=== PATIENT | female | born 1965 | race Caucasian/White ===

== ENCOUNTER 2019-05-06 07:33 | Outpatient (CLI) | payer OTHER, SELFPAY ==
[2019-04-30 14:36] VITALS: BMI 25.7
[2019-05-06] VITALS (10 sets, daily range): BP systolic 103–136; BP diastolic 56–83; PULSE 72–95; RESP 14–24; O2SAT 95–96
--- NOTE | ~2019-05-06 | US_ITS ---
EXAMINATION: US biopsy liver DATE: 05/06/2019 10:01 INDICATION: Abnormal liver function tests. TECHNIQUE: The procedure including the risks, benefits, and alternatives was discussed with the patie nt. Risks discussed included bleeding and infection. The patient understood the risks and agreed to p roceed. The skin overlying the liver was prepped and draped in usual sterile fashion. Anesthetic was administered with 1% lidocaine subcutaneously. An 18 gauge core biopsy needle was then used to obta in 3 core biopsy specimens under continuous sonographic guidance. The entry site was cleaned and dres sed. There were no immediate complications. FINDINGS: Ultrasound images demonstrate the needle in the liver. IMPRESSION: 1. Ultrasound-guided random core needle liver biopsy. Reviewed, dictated and finalized at location A. NDER WORKER
[2019-05-06 08:23] LABS: INR 0.9; Prothrombin Time 12.1 Seconds (11.1-14.7)
[2019-05-06 08:40] LABS: Platelet Count Result 207 k/mm3 (150-375)
== END 2019-05-06 14:01 | disposition home or self-care (01) ==
LOC: SURGERY 07:37 → ANHSURGERY 07:38
PROVIDERS: Radiology Diagnostic Radiology; Visit Provider Internal Medicine Gastroenterology
DX: R94.5 Abnormal results of liver function studies (principal)
CPT/HCPCS: 36415; 47000; 76942; 85049; 85610; 88307; 88342

== ENCOUNTER 2019-05-17 10:15 | Emergency (ER) | payer OTHER, SELFPAY ==
--- NOTE | ~2019-05-17 | CT_ITS ---
EXAMINATION: CTA chest PE protocol DATE: 05/17/2019 12:50 INDICATION: Shortness of breath and chest pain. TECHNIQUE: Computed tomography angiography (CTA) of the chest was performed with 100 mL Omnipaque-350 intravenous contrast timed to evaluate the pulmonary arteries. Coronal maximum intensity projection 3D-reconstructions were created by the technologist. Automated exposure control and iterative reconst ruction technique were employed. The dose-length product was 325.54 mGy-cm. COMPARISON: Chest CT 03/10/2019 FINDINGS: The lungs demonstrate mild atelectasis. No pleural effusion. There are bilateral breast imp lants. The heart size is normal. No pericardial effusion. There is no pulmonary embolus. There are ch anges of cholecystectomy. There is thoracic levoscoliosis and mild spondylosis. IMPRESSION: 1. No pulmonary embolus. Reviewed, dictated and finalized at location A. LEAF ROLLER IMPRESSION: 1. No pulmonary embolus.
--- NOTE | ~2019-05-17 | XR_ITS ---
EXAMINATION: XR chest 2V DATE: 05/17/2019 10:50 INDICATION: Left lower rib pain. TECHNIQUE: Frontal and lateral views of the chest were obtained. COMPARISON: Chest 2 views 07/29/2018, chest CT 03/10/2019 FINDINGS: The chest demonstrates clear lungs without pneumonia, pleural effusion, or pneumothorax. Th e heart size is normal. Surgical clips in the right upper quadrant are likely from cholecystectomy. T here is a chronic compression fracture of T12. There are bilateral breast implants. There is no visib le rib fracture. IMPRESSION: 1. No acute cardiopulmonary disease. Reviewed, dictated and finalized at location A. ER OPERATOR
--- NOTE | 2019-05-17 10:24 | ED.BACK ---
HPI - Back Pain/Injury General Chief Complaint: Back Pain/Injury Stated Complaint: L back pain Time Seen by Provider: 05/17/19 10:19 Source: patient and RN notes reviewed Mode of arrival: ambulatory Limitations: no limitations History of Present Illness HPI Narrative: Pt is a 54 y/o female with a Hx of PE, who presents to the ED with c/o constant lt low back pain starting 3 days ago. She notes that she hasn't had any recent falls or injuries that could have caused her pain. Pt states that her pain is aggravated with deep breathing and twisting of her torso. She notes that her pain is located primarily in her posterior lt lower ribs. Pt denies any cough, rhinorrhea, fever, chills, nausea, or vomiting. She notes that she is concerned she may be having another PE. MD elicited complaint: back pain Pertinent past history: other (pulmonary embolism) Onset (ago): day(s) (3) Timing: constant Location: left lower back Exacerbating factors: movement (twisting of torso) and deep breaths Associated symptoms: denies other symptoms Related Data Home Medications Medication Instructions Recorded Confirmed gabapentin 600 mg tablet 600 mg PO DAILY 02/18/19 04/30/19 omeprazole 20 mg capsule,delayed 20 mg PO DAILY 02/18/19 04/30/19 release clobetasol 1 applic TOPICAL DAILY PRN 04/30/19 04/30/19 mupirocin 1 applic TOPICAL DIRECTED PRN 04/30/19 04/30/19 pimecrolimus 1 applic TOPICAL DIRECTED PRN 04/30/19 04/30/19 Allergies Allergy/AdvReac Type Severity Reaction Status Date / Time diclofenac Allergy Severe hives Verified 05/17/19 10:46 adhesive Allergy Unknown Itching/HIV Verified 05/17/19 10:34 ES Review of Systems Review of Systems: All systems reviewed & are unremarkable except as noted in HPI and below Constitutional: Constitutional: Denies chills and Denies fever(s) ENT: Denies nasal discharge Respiratory: Respiratory: Denies cough Gastrointestinal: Gastrointestinal: Denies nausea and Denies vomiting Musculoskeletal: Musculoskeletal: Reports back pain (lt low back pain) PMFSH Past Medical History Medical History Age-related osteoporosis without current pathological fracture Anemia Anxiety Bronchitis Chronic GERD Dermatitis Elbow fracture, right Foot fracture, right History of angina Irritable bowel syndrome with both constipation and diarrhea Left rib fracture x3 Major depression, chronic PE (pulmonary thromboembolism) Pneumonia Presence of neurostimulator Rheumatoid arthritis with positive rheumatoid factor Right wrist fracture UTI (urinary tract infection) Surgical History Surgical History H/O breast augmentation H/O laparoscopy History of appendectomy History of tonsillectomy Hx of cholecystectomy Hx of hysterectomy S/P ORIF (open reduction internal fixation) fracture lt ankle and rt wrist Social History Social History Smoking packs per day: 1.5 Smoking cigarettes per day: 30.0 Smoking status: Former smoker Tobacco type: cigarettes Second hand tobacco smoke exposure: No Smoking end date: 04/07/10 Alcohol intake: never Substance use: never Substance use type: does not use Gender identity (if verbalized by the patient): Female Comments PCP is Dr. Vanessa. Exam Narrative: Exam Narrative: General appearance: Well-developed, well-nourished Skin: Normal color Head: Normocephalic, nontraumatic Eyes: Clear conjunctiva ENT: Oropharynx normal, ears normal, nose normal Neck: Supple, nontender Chest and respiratory: Airway patent, no respiratory distress, no accessory muscle use Heart: Regular rate/rhythm Abdomen: Soft, nontender, no organomegaly, quiet bowel sounds Vascular: Normal peripheral pulses, normal capillary refill. Musculoskeletal: Normal range of motion, severe tenderness left lower ribs posteriorly, no bruises,
[2019-05-17 10:29] VITALS: BP 113/68; BP 142/70; PULSE 80; PULSE 88; RESP 16; RESP 17; TEMP 36.7; O2SAT 97; O2SAT 98
--- NOTE | 2019-05-17 10:39 | ECG_ITS ---
Measurements Intervals [place] Rate: 72 P: 49 WI: 152 QRS: 8 QRSD: 98 T: 20 QT: 371 QTc: 409 Interpretive Statements SINUS RHYTHM NORMAL ECG Electronically Signed On 05-17-2019 13:01:26 MEDICAL LIAISON by Liam Saldivar D.O.
[2019-05-17 11:29] LABS: Basophils Percent Auto 0.9 % (0.2-1.2); Eosinophils Absolute Auto 0.1 K/mm3 (0-0.3); Eosinophils Percent Auto 2.4 % (0-4.4); Hematocrit 40.6 % (37.0-47.0); Immature Granulocyte Absolute 0.01 K/mm3 (0.00-0.031); Immature Granulocyte Percent A 0.2 % (0-0.5); Lymphocytes Absolute Auto 1.52 K/mm3 (0.9-3.2); Mean Corpuscular Hemoglobin 35.1 pg (26-34); Mean Corpuscular Volume 109.7 fl (80-100); Mean Platelet Volume 10.7 fl (7.4-10.4); Monocytes Absolute Auto 0.5 K/mm3 (0.1-0.6); Neutrophils Absolute Auto 2.5 K/mm3 (1.3-6.7); Neutrophils Percent Auto 53.5 % (45.5-73.1); Platelet Count Result 178 k/mm3 (150-375); Red Cell Distribution Width 13.2 % (11.5-14.5); White Blood Count 4.6 K/mm3 (4.5-10.0)
[2019-05-17 11:41] LABS: INR 0.9; Prothrombin Time 12.2 Seconds (11.1-14.7)
[2019-05-17 11:42] LABS: Partial Thromboplastin Time 25.2 SECONDS (22.3-36.8)
[2019-05-17 11:45] LABS: D Dimer 2.05 ug/mL (<0.48)
[2019-05-17 11:47] LABS: Add Urine Microscopic? YES; Appearance Urine Clear (Clear); Bilirubin Urine Negative (Negative); Blood Urine Negative (Negative); Color Urine Straw (Yellow); Glucose Urine UA Negative (Negative); Ketones Urine Negative (Negative); Leukocyte Esterase Ur Trace LEU/UL (Negative); Mucus Urine Rare /lpf; Nitrate Urine Negative (Negative); Protein Urine Negative (Negative); RBC Urine 0-2 /hpf (0-2); Specific Grav Ur 1.006 (1.001-1.035); Squamous Epithelial Cell Urine Rare /hpf (Few); Urobilinogen Urine Negative mg/dL (<2.0); WBC Urine 0-3 /hpf
[2019-05-17 11:50] LABS: Troponin I < 0.012 ng/mL (0.000-0.034)
[2019-05-17 14:15] VITALS: BP 138/68; PULSE 80; RESP 14; O2SAT 98
== END 2019-05-17 14:15 | disposition home or self-care (01) ==
PROVIDERS: Emergency Provider Emergency Medicine
DX: M54.5 Low back pain (principal); M81.0 Age-related osteoporosis without current pathological fracture; K21.9 Gastro-esophageal reflux disease without esophagitis; K58.2 Mixed irritable bowel syndrome; Z86.711 Personal history of pulmonary embolism; M06.9 Rheumatoid arthritis, unspecified; Z87.440 Personal history of urinary (tract) infections; Z87.891 Personal history of nicotine dependence; Z86.2 Personal history of diseases of the blood and blood-forming organs and certain disorders involving the immune mechanism
CPT/HCPCS: 36415; 71046; 71275; 81001; 84484; 85025; 85380; 85610; 85730; 93005; 99284; A9270; J2270; J2405; Q9967

== ENCOUNTER 2019-10-04 10:15 | Emergency (ER) | payer OTHER, SELFPAY ==
[2019-10-04] VITALS (8 sets, daily range): BP systolic 115–133; BP diastolic 57–78; PULSE 56–78; RESP 12–19; TEMP 36.3–37.3; O2SAT 99–100
[2019-10-04 10:53] LABS: Basophils Percent Auto 0.2 % (0.2-1.2); Eosinophils Percent Auto 0.1 % (0-4.4); Hematocrit 45.3 % (37.0-47.0); Hemoglobin 15.2 g/dL (12.0-15.0); Immature Granulocyte Absolute 0.08 K/mm3 (0.00-0.031); Immature Granulocyte Percent A 0.4 % (0-0.5); Lymphocytes Absolute Auto 0.74 K/mm3 (0.9-3.2); Lymphocytes Percent Auto 3.8 % (18.3-44.2); Mean Corpuscular HGB Conc 33.6 g/dl (32-36); Mean Corpuscular Volume 86.3 fl (80-100); Monocytes Absolute Auto 1.3 K/mm3 (0.1-0.6); Monocytes Percent Auto 6.5 % (2.6-8.5); Neutrophils Absolute Auto 17.2 K/mm3 (1.3-6.7); Platelet Count Result 398 k/mm3 (150-375); Red Blood Count 5.25 M/mm3 (4.2-5.4); Red Cell Distribution Width 14.5 % (11.5-14.5); White Blood Count 19.3 K/mm3 (4.5-10.0)
[2019-10-04 11:08] LABS: Alanine Aminotransferase 27 U/L (4-35); Albumin Level 5.1 g/dL (3.5-5.1); Alkaline Phosphatase 158 U/L (38-126); Aspartate Amino Transferase 43 U/L (14-36); Bilirubin,Total 0.7 mg/dL (0.2-1.3); Blood Urea Nitrogen 4 mg/dL (7-17); Calcium 10.5 mg/dL (8.4-10.2); Carbon Dioxide 15 mmol/L (22-30); Chloride 107 mmol/L (98-107); Estimated CRCL calculation 77 ml/min; Estimated Glomerular Filt Rate > 60; Glucose 123 mg/dL (65-105); Lipase 182 U/L (23-300); Potassium 3.3 mmol/L (3.4-5.0); Sodium 137 mmol/L (137-145)
--- NOTE | 2019-10-04 11:27 | PC.NURSE ---
Pt refused to give urine sample, pt refused straight cath at this time. I'll try this later
[2019-10-04 12:06] LABS: Add Urine Microscopic? YES; Appearance Urine Clear (Clear); Bilirubin Urine Negative (Negative); Blood Urine 2+ (Negative); Color Urine Yellow (Yellow); Glucose Urine UA Negative (Negative); Hyaline Casts Urine 20-29 /lpf; Ketones Urine 2+ mg/dL (Negative); Leukocyte Esterase Ur Negative LEU/UL (Negative); Mucus Urine Rare /lpf; Nitrate Urine Negative (Negative); Protein Urine 2+ mg/dL (Negative); RBC Urine 0-2 /hpf (0-2); Specific Grav Ur 1.021 (1.001-1.035); Squamous Epithelial Cell Urine Occasional /hpf (Few); Urobilinogen Urine Negative mg/dL (<2.0)
[2019-10-04] MEDS: LACTATED RINGERS 1,000 ML 999 ML IV CONT ×2 (13:04→13:05)
[2019-10-04] MEDS: ONDANSETRON INJ 4 MG/2 ML VIAL IV PUSH ×2 (13:05→14:51)
[2019-10-04 13:12] LABS: Alveolar/Arterial O2 Gradient 29.8 mmHg; Carboxyhemoglobin 0.7 % THb (0-2.0); Fractional Inspired Oxygen 21 %; HCO3 ABG 11.4 mEq/l (22.0-26.0); Methemoglobin ABG 0.3 %THb (0-1.5); Oxygen Content ABG 20.9 %vol (16.0-22.0); Oxygen Saturation ABG 97.8 % (95.0-100.0); Oxyhemoglobin 96.8 % THb (90.0-100.0); PO2 ABG 98.5 mmHg (80.0-100.0); PO2 FiO2 Ratio Arterial Blood 4.69 %; Reduced Hemoglobin 2.2 %THb (0-5.0); Total Hemoglobin 15.3 g/dL (12.0-18.0); pH ABG 7.422 (7.350-7.450)
[2019-10-04 13:14] LABS: Modified Allen's Test Pass; PCO2 ABG 17.9 mmHg (35.0-45.0); Site Drawn LEFT RADIAL
[2019-10-04 13:15] LABS: Device ROOM AIR
--- NOTE | 2019-10-04 13:16 | ED.NAVMDI ---
HPI - Nausea/Vomiting/Diarrhea General Chief complaint: Nausea/Vomiting/Diarrhea Stated complaint: N/V Time Seen by Provider: 10/04/19 12:33 Source: patient Mode of arrival: ambulatory Limitations: no limitations History of Present Illness HPI Narrative: This patient is a 54 year old female who presents for evaluation of nausea and vomiting starting Friday. PAtient states that she had not had a bowel movment in 1 week due to constipation from Morphine so she took a laxative. AFter taking laxative she developed bilious vomiting and she is unable to keep any thing down. She also reports diarrhea, but her diarrhea stopped yesterday. She denies fever or chills. She normally takes morphine daily for chronic pain but she has not taken in 4 days. She denies urinary symptoms MD elicited complaint: nausea, vomiting and diarrhea Related Data Home Medications Medication Instructions Recorded Confirmed gabapentin 600 mg tablet 600 mg PO DAILY 02/18/19 04/30/19 omeprazole 20 mg capsule,delayed 20 mg PO DAILY 02/18/19 04/30/19 release clobetasol 1 applic TOPICAL DAILY PRN 04/30/19 04/30/19 mupirocin 1 applic TOPICAL DIRECTED PRN 04/30/19 04/30/19 pimecrolimus 1 applic TOPICAL DIRECTED PRN 04/30/19 04/30/19 morphine 15 mg immediate release 15 mg PO .Daily PRN tablet 08/31/19 tablet Allergies Allergy/AdvReac Type Severity Reaction Status Date / Time diclofenac Allergy Severe hives Verified 10/04/19 11:29 adhesive Allergy Unknown Itching/HIV Verified 10/04/19 11:29 ES Review of Systems Review of Systems: All systems reviewed & are unremarkable except as noted in HPI and below Constitutional: Constitutional: Denies chills and Denies fever(s) Respiratory: Respiratory: Denies cough and Denies dyspnea Gastrointestinal: Gastrointestinal: Reports constipation, Reports diarrhea, Reports nausea and Reports vomiting Genitourinary: Genitourinary: Reports no additional female genitourinary complaints Musculoskeletal: Musculoskeletal: Reports no additional musculoskeletal complaints PMFSH Past Medical History Medical History Age-related osteoporosis without current pathological fracture Anemia Anxiety Bronchitis Chronic GERD Dermatitis Elbow fracture, right Foot fracture, right History of angina Irritable bowel syndrome with both constipation and diarrhea Left rib fracture x3 Major depression, chronic PE (pulmonary thromboembolism) Pneumonia Presence of neurostimulator Rheumatoid arthritis with positive rheumatoid factor (2019) Right wrist fracture UTI (urinary tract infection) Social History Social History Smoking packs per day: 1.5 Smoking cigarettes per day: 30.0 Smoking status: Former smoker Tobacco type: cigarettes Second hand tobacco smoke exposure: No Smoking end date: 04/07/10 Alcohol intake: never Substance use: never Substance use type: does not use Gender identity (if verbalized by the patient): Female Exam Narrative: Exam Narrative: GENERAL: Well-appearing, well-nourished, and in no acute distress. HEAD: Normocephalic, atraumatic EYES: PERRLA and EOMI, conjunctiva clear without discharge EARS: TM's clear bilaterally without erythema or dullness NOSE: Nares clear, no rhinorrhea or epistaxis THROAT:Mucous membranes moist, Oropharynx normal without erythema, exudate, peritonsillar swelling or fluctuance NECK: Supple, without lymphadenopathy or mass RESPIRATORY: No respiratory distress, Airway patent, Respirations non-labored, Clear to auscultation without rales, rhonchi or wheeze HEART: Regular rate and rhythm. No murmur heard. Normal peripheral pulses. ABDOMEN: Soft, nontender, nondistended, normal active bowel sounds. No masses. No rebound or guarding, No organomegaly. EXTREMITIES: No edema, normal strength with full range of motion. SKIN: Warm,
[2019-10-04 13:51] LABS: Lactic Acid Reflex 1.1 mmol/L (0.7-2.1)
--- NOTE | 2019-10-04 15:09 | PC.NURSE ---
Patient reports continued nausea despite second dose of zofran being given. EDP aware
[2019-10-04] MEDS: PROMETHAZINE HCL 25 MG/ML AMPUL 12.5 MG IV PUSH (15:50)
== END 2019-10-04 17:19 | disposition home or self-care (01) ==
PROVIDERS: Emergency Provider General Practice; PCP Family Medicine
DX: R11.2 Nausea with vomiting, unspecified (principal); E86.0 Dehydration; Z87.891 Personal history of nicotine dependence; D64.9 Anemia, unspecified; F41.9 Anxiety disorder, unspecified; K21.9 Gastro-esophageal reflux disease without esophagitis; F32.9 Major depressive disorder, single episode, unspecified
CPT/HCPCS: 36415; 36600; 80053; 81001; 82375; 82805; 83050; 83605; 83690; 85025; 96361; 96374; 96375; 99284; J2405; J2550; J7120

== ENCOUNTER 2019-10-07 11:54 | Outpatient (CLI) | payer OTHER, SELFPAY ==
[2019-10-07 12:22] LABS: Basophils Percent Auto 0.4 % (0.2-1.2); Eosinophils Percent Auto 0.1 % (0-4.4); Hematocrit 44.3 % (37.0-47.0); Immature Granulocyte Absolute 0.05 K/mm3 (0.00-0.031); Immature Granulocyte Percent A 0.4 % (0-0.5); Lymphocytes Absolute Auto 3.47 K/mm3 (0.9-3.2); Mean Corpuscular HGB Conc 33.9 g/dl (32-36); Mean Corpuscular Volume 85.7 fl (80-100); Mean Platelet Volume 10.3 fl (7.4-10.4); Monocytes Absolute Auto 1.1 K/mm3 (0.1-0.6); Monocytes Percent Auto 9.7 % (2.6-8.5); Neutrophils Absolute Auto 6.5 K/mm3 (1.3-6.7); Neutrophils Percent Auto 58.4 % (45.5-73.1); Platelet Count Result 304 k/mm3 (150-375); Red Blood Count 5.17 M/mm3 (4.2-5.4); Red Cell Distribution Width 14.1 % (11.5-14.5); White Blood Count 11.2 K/mm3 (4.5-10.0)
[2019-10-07 13:14] LABS: Alanine Aminotransferase 25 U/L (4-35); Albumin Level 4.5 g/dL (3.5-5.1); Alkaline Phosphatase 125 U/L (38-126); Aspartate Amino Transferase 31 U/L (14-36); Blood Urea Nitrogen 6 mg/dL (7-17); Calcium 9.2 mg/dL (8.4-10.2); Carbon Dioxide 20 mmol/L (22-30); Chloride 102 mmol/L (98-107); Estimated Glomerular Filt Rate > 60; Glucose 79 mg/dL (65-105); Lipase 379 U/L (23-300); Sodium 137 mmol/L (137-145)
[2019-10-07 14:00] LABS: Potassium 2.8 mmol/L (3.4-5.0)
== END 2019-10-07 11:55 | disposition home or self-care (01) ==
PROVIDERS: PCP Family Medicine; Visit Provider Physician Assistant
DX: D72.829 Elevated white blood cell count, unspecified (principal); R10.9 Unspecified abdominal pain; R11.2 Nausea with vomiting, unspecified
CPT/HCPCS: 36415; 80053; 83690; 85025; 87086

== ENCOUNTER 2019-10-07 14:51 | Emergency (ER) | payer OTHER, SELFPAY ==
--- NOTE | ~2019-10-07 | CT_ITS ---
EXAMINATION: CT abdomen pelvis w con EXAM DATE: 10/07/2019 15:41 INDICATION: Low abdominal pain and vomiting. TECHNIQUE: Spiral CT of the abdomen and pelvis was performed following intravenous injection of 100 m L Omnipaque 350. Axial, coronal and sagittal images were reviewed. The dose-length product (DLP) fo r this examination was 346.44 mGy-cm. The exposure was tailored according to patient size (auto mA e xposure control), and iterative reconstruction (ASIR) was used as additional dose reduction technique . Comparison is made to prior examination from 08/20/2017. FINDINGS: The liver, spleen, adrenal glands and pancreas are unremarkable. There are cholecystectomy clips. Portal and splenic veins are patent. Kidneys enhance symmetrically. There is no hydronephr osis. Patulous right renal pelvis. No hydroureter. The uterus is not identified and has likely been surgically resected. The bladder is unremarkable. There is no retroperitoneal or pelvic lymphadenop athy. The appendix is not positively visualized. There is no pericecal inflammatory change to suggest appe ndicitis. The stomach and small bowel are unremarkable. There is expected amount of colonic stool. No free intraperitoneal gas. The heart is normal in size. There are no pericardial or pleural e ffusions. The lung bases are unremarkable. There are no osteoblastic or osteolytic lesions identifi ed. breast implants. IMPRESSION: 1. No acute intra-abdominal findings. Reviewed, dictated and finalized at location B.
[2019-10-07 14:59] VITALS: BP 129/98; PULSE 96; RESP 17; TEMP 36.9; O2SAT 100
--- NOTE | 2019-10-07 15:08 | PC.NURSE ---
Patient had lab work done here about 3 hours ago. Discussed patient with charge nurse. Labs from noon printed on placed on chart. UA ordered. Patient reports that she is her for a CT scan.
[2019-10-07] MEDS: LACTATED RINGERS 1,000 ML 999 ML IV CONT (15:24)
[2019-10-07] MEDS: ONDANSETRON INJ 4 MG/2 ML VIAL IV PUSH (15:24)
[2019-10-07 16:22] LABS: Add Urine Microscopic? YES; Appearance Urine Clear (Clear); Bilirubin Urine Negative (Negative); Blood Urine 1+ (Negative); Color Urine Colorless (Yellow); Glucose Urine UA Negative (Negative); Ketones Urine 2+ mg/dL (Negative); Leukocyte Esterase Ur Negative LEU/UL (Negative); Nitrate Urine Negative (Negative); Protein Urine Negative (Negative); RBC Urine 0-2 /hpf (0-2); Urobilinogen Urine Negative mg/dL (<2.0); WBC Urine 0-3 /hpf
[2019-10-07] MEDS: POTASSIUM CHLORIDE 20 MEQ PACKET (FOR LIQUID) 40 MEQ PO (16:24)
[2019-10-07 16:25] LABS: Specific Grav Ur 1.039 (1.001-1.035)
[2019-10-07] MEDS: FAMOTIDINE 20 MG/2 ML VIAL IV PUSH (16:41)
[2019-10-07] MEDS: PROCHLORPERAZINE EDISYLATE 10 MG/2 ML VIAL IV PUSH (16:41)
--- NOTE | 2019-10-07 17:04 | ED.ABDPAIN ---
HPI - Abdominal Pain General Chief Complaint: Abdominal Pain <MAE Oglesby Last Filed: 10/07/19 17:10> Stated Complaint: weak, abnormal labs <MAE Oglesby Last Filed: 10/07/19 17:10> Time Seen by Provider: 10/07/19 15:56 <MAE Oglesby Last Filed: 10/07/19 17:10> Source: patient <MAE Oglesby Last Filed: 10/07/19 17:10> Mode of arrival: ambulatory <MAE Oglesby Last Filed: 10/07/19 17:10> Limitations: no limitations <MAE Oglesby Last Filed: 10/07/19 17:10> History of Present Illness HPI narrative: Patient is a 54-year-old female who presents with a week duration of intermittent nausea and vomiting described as bilious was seen in the emergency department a day ago had blood work performed and was sent home but has continued to nausea and vomiting since leaving yesterday seen by primary care today had repeat blood work and was referred back to emergency department patient notes mild cramping of the abdomen patient has not taken anything for her symptoms patient denies rectal bleeding melena or diarrhea <MAE Oglesby Last Filed: 10/07/19 17:10> Related Data Home Medications: Home Medications Medication Instructions Recorded Confirmed gabapentin 600 mg tablet 600 mg PO DAILY 02/18/19 04/30/19 omeprazole 20 mg capsule,delayed 20 mg PO DAILY 02/18/19 04/30/19 release clobetasol 1 applic TOPICAL DAILY PRN 04/30/19 04/30/19 mupirocin 1 applic TOPICAL DIRECTED PRN 04/30/19 04/30/19 pimecrolimus 1 applic TOPICAL DIRECTED PRN 04/30/19 04/30/19 morphine 15 mg immediate release 15 mg PO .Daily PRN tablet 08/31/19 tablet morphine 30 mg immediate release 30 mg PO Q8H PRN 10/07/19 10/07/19 tablet <MAE Oglesby Last Filed: 10/07/19 17:10> Allergies/Adverse Reactions: Allergies Allergy/AdvReac Type Severity Reaction Status Date / Time diclofenac Allergy Severe hives Verified 10/07/19 15:01 adhesive Allergy Unknown Itching/HIV Verified 10/07/19 15:01 ES <Michael Jaramillo PA-C - Last Filed: 10/07/19 17:10> Review of Systems Review of Systems: All systems reviewed & are unremarkable except as noted in HPI and below <Michael Jaramillo PA-C - Last Filed: 10/07/19 17:10> PMFSH Past Medical History Medical History: Medical History Age-related osteoporosis without current pathological fracture Anemia Anxiety Bronchitis Chronic GERD Dermatitis Elbow fracture, right Foot fracture, right History of angina Irritable bowel syndrome with both constipation and diarrhea Left rib fracture x3 Major depression, chronic PE (pulmonary thromboembolism) Pneumonia Presence of neurostimulator Rheumatoid arthritis with positive rheumatoid factor (2019) Right wrist fracture UTI (urinary tract infection) <Michael Jaramillo PA-C - Last Filed: 10/07/19 17:10> Surgical History Surgical History: Surgical History H/O breast augmentation H/O laparoscopy History of appendectomy History of tonsillectomy Hx of cholecystectomy Hx of hysterectomy S/P ORIF (open reduction internal fixation) fracture lt ankle and rt wrist <Michael Jaramillo PA-C - Last Filed: 10/07/19 17:10> Social History Social History: Social History Smoking packs per day: 1.5 Smoking cigarettes per day: 30.0 Smoking status: Former smoker Tobacco type: cigarettes Second hand tobacco smoke exposure: No Smoking end date: 04/07/10 Alcohol intake: never Substance use: never Substance use type: does not use Gender identity (if verbalized by the patient): Female <Michael Jaramillo PA-C - Last Filed: 10/07/19 17:10> Exam Narrative: Exam Narrative: GENERAL: Well-appearing, well-nourished, and in no acute di
[2019-10-07 17:18] VITALS: BP 135/79; PULSE 89; RESP 17; O2SAT 98
== END 2019-10-07 17:18 | disposition home or self-care (01) ==
PROVIDERS: Emergency Provider General Practice; PCP Family Medicine
DX: R10.9 Unspecified abdominal pain (principal); M81.0 Age-related osteoporosis without current pathological fracture; Z86.2 Personal history of diseases of the blood and blood-forming organs and certain disorders involving the immune mechanism; K21.9 Gastro-esophageal reflux disease without esophagitis; K58.2 Mixed irritable bowel syndrome; M05.9 Rheumatoid arthritis with rheumatoid factor, unspecified; Z86.711 Personal history of pulmonary embolism; Z87.440 Personal history of urinary (tract) infections; Z87.891 Personal history of nicotine dependence
CPT/HCPCS: 74177; 81001; 96361; 96374; 96375; 99284; A9270; J0780; J2405; J7120; Q9967

== ENCOUNTER 2019-10-22 00:45 | Outpatient (CLI) | payer OTHER, SELFPAY ==
[2019-10-22 19:22] LABS: SARS-CoV-2 RNA PCR Negative
== END 2019-10-22 00:46 | disposition home or self-care (01) ==
LOC: ANHCOVIDDT 00:45
PROVIDERS: PCP Family Medicine; Visit Provider Internal Medicine Gastroenterology
DX: Z01.818 Encounter for other preprocedural examination (principal); Z11.59 Encounter for screening for other viral diseases
CPT/HCPCS: 87635; C9803; U0003

== ENCOUNTER 2019-10-25 01:59 | Day surgery (SDC) | payer OTHER, SELFPAY ==
[2019-10-19 13:42] VITALS: BMI 24.2
[2019-10-25 08:00] VITALS: BP 125/68; PULSE 97; RESP 18; TEMP 37.2; O2SAT 98
--- NOTE | 2019-10-25 08:12 | WPDGICN ---
Assessment and Plan Assessment and plan (1) Chronic GERD: Code(s): K21.9 - Gastro-esophageal reflux disease without esophagitis Status: Acute Assessment and Plan: Patient has a history of GE reflux disease. Currently not responding well to Prilosec therapy. Plan is for EGD to assess more thoroughly. (2) Nausea & vomiting: Code(s): R11.2 - Nausea with vomiting, unspecified Status: Acute Assessment and Plan: Protracted nausea vomiting. Likely related to GERD. Cannot exclude marijuana use contributing some component of cyclical vomiting. She has been advised to minimize marijuana use. Prilosec 20 mg p.o. daily is given. Further recommendations will be given after endoscopy. GI Consult Note Consult date/time: 10/25/19 08:12 HPI: Angelica Armando is a 54 year old female seen in evaluation at the request of Dr Gregorio Vanessa. Patient has a long history of GE reflux disease. Previously controlled on ranitidine. Symptoms seem to worsen when she was changed to Prilosec recently. She now complains protracted episodes of vomiting. She had a 1 week episode of ongoing nausea vomiting. More recently has had intermittent nausea and vomiting. Sometimes this woke her in the middle of the night. She has continued Prilosec 20 mg p.o. daily. Intermittently will supplement this with Pepto-Bismol. She admits to social E using marijuana. She denies any recent change in medications otherwise. Some of her vomiting emesis is having had coffee-ground texture. Family history is noncontributory. Review of Systems Review of Systems: All systems reviewed & are unremarkable except as noted in HPI and below PMFSH Past Medical History Medical History Age-related osteoporosis without current pathological fracture Anemia Anxiety Bronchitis Chronic GERD Dermatitis Elbow fracture, right Foot fracture, right History of angina Irritable bowel syndrome with both constipation and diarrhea Left rib fracture x3 Major depression, chronic PE (pulmonary thromboembolism) Pneumonia Presence of neurostimulator Rheumatoid arthritis with positive rheumatoid factor (2019) Right wrist fracture UTI (urinary tract infection) Surgical History Surgical History H/O breast augmentation H/O laparoscopy History of appendectomy History of tonsillectomy Hx of cholecystectomy Hx of hysterectomy S/P ORIF (open reduction internal fixation) fracture lt ankle and rt wrist Family History Family History Mother Hypertension Cerebrovascular accident Family history of lymphoma Father Family history of Alzheimer's disease Other Carcinoma of colon Depression Diabetes mellitus Family history of arthritis Family history of cardiovascular disease Family history of emphysema Family history of glaucoma Family history of gout Family history of hepatitis Family history of thyroid disease Social History Social History Smoking packs per day: 1.5 Smoking cigarettes per day: 30.0 Smoking status: Former smoker Tobacco type: cigarettes Second hand tobacco smoke exposure: No Smoking end date: 04/07/10 Alcohol intake: never Substance use: never Substance use type: does not use Gender identity (if verbalized by the patient): Female Meds Home Medications and Allergies Home Medications Medication Instructions Recorded Confirmed Type gabapentin 600 mg tablet 600 mg PO DAILY 02/18/19 10/19/19 History omeprazole 20 mg capsule,delayed 20 mg PO DAILY 02/18/19 10/19/19 History release trazodone 50 mg tablet 50 mg PO .qhs #90 tablet 05/10/19 10/19/19 Rx etanercept 50 mg/mL (1 mL) 50 mg SUB-Q WEEKLY #4 ml 08/31/19 10/19/19 Rx subcutaneous cartridge morphine 30 mg immediate rel
--- NOTE | 2019-10-25 08:19 | WPDANESEPPF ---
Anes - Initial Pre Proc Eval Procedure: Operation Date: 10/25/19 09:00 Proposed Procedures p Esophagogastroduodenoscopy - Brown Lewis MD Date/Time: 10/25/19 08:19 Surgeon: Brown Lewis MD Pre Op Diagnosis: vomiting Patient Data Age: 54 Gender: F Height: 5 ft 4 in Weight: 69.2 kg Last Vital Signs Temp 37.2 C 10/25/19 08:00 Pulse 97 10/25/19 08:00 Resp 18 10/25/19 08:00 BP 125/68 10/25/19 08:00 Pulse Ox 98 10/25/19 08:00 Allergies Allergy/AdvReac Type Severity Reaction Status Date / Time diclofenac Allergy Severe hives Verified 10/25/19 07:59 adhesive Allergy Unknown Itching/HIV Verified 10/25/19 07:59 ES Home Medications Medication Instructions Recorded Confirmed Type gabapentin 600 mg tablet 600 mg PO DAILY 02/18/19 10/19/19 History omeprazole 20 mg capsule,delayed 20 mg PO DAILY 02/18/19 10/19/19 History release trazodone 50 mg tablet 50 mg PO .qhs #90 tablet 05/10/19 10/19/19 Rx etanercept 50 mg/mL (1 mL) 50 mg SUB-Q WEEKLY #4 ml 08/31/19 10/19/19 Rx subcutaneous cartridge morphine 30 mg immediate release 30 mg PO Q8H PRN 10/07/19 10/19/19 History tablet promethazine 25 mg PO Q4H PRN #10 tablet 10/07/19 10/19/19 Rx diphenhydramine HCl [Benadryl] 25 mg PO HS 10/19/19 10/19/19 History Patient hx anesthesia problems: none Family hx anesthesia problems: none PMFSH Past Medical History Medical History Age-related osteoporosis without current pathological fracture Anemia Anxiety Bronchitis Chronic GERD Dermatitis Elbow fracture, right Foot fracture, right History of angina Irritable bowel syndrome with both constipation and diarrhea Left rib fracture x3 Major depression, chronic PE (pulmonary thromboembolism) Pneumonia Presence of neurostimulator Rheumatoid arthritis with positive rheumatoid factor (2019) Right wrist fracture UTI (urinary tract infection) Surgical History Surgical History H/O breast augmentation H/O laparoscopy History of appendectomy History of tonsillectomy Hx of cholecystectomy Hx of hysterectomy S/P ORIF (open reduction internal fixation) fracture lt ankle and rt wrist Family History Family History Mother Hypertension Cerebrovascular accident Family history of lymphoma Father Family history of Alzheimer's disease Other Carcinoma of colon Depression Diabetes mellitus Family history of arthritis Family history of cardiovascular disease Family history of emphysema Family history of glaucoma Family history of gout Family history of hepatitis Family history of thyroid disease Social History Social History Smoking packs per day: 1.5 Smoking cigarettes per day: 30.0 Smoking status: Former smoker Tobacco type: cigarettes Second hand tobacco smoke exposure: No Smoking end date: 04/07/10 Alcohol intake: never Substance use: never Substance use type: does not use Gender identity (if verbalized by the patient): Female Anes - Eval Final PreProcedure Day of Procedure 10/25/19 08:19 Patient weight: overweight Heart: regular rate and rhythm Lungs: decreased breath sounds Airway: Mallampati scale class II Neurological: alert and oriented Last oral intake: >/= 8 hours ASA classification: III Emergent: no Anesthetic plan: proceed Anesthesia type and monitoring: general GIVS and standard monitoring Informed Consent: The patient's anesthetic plan and its attendant risks and benefits were discussed with the patient/family/POA. Questions were solicited and answers provided to the satisfaction of the patient/family/POA.
[2019-10-25] MEDS: LACTATED RINGERS 1,000 ML 150 ML IV CONT (09:09)
[2019-10-25] MEDS: BENZOCAINE (*SP) 60 ML SPRAY CAN (HURRICAINE) 1 SPRAY MUCOUS MEM (09:35)
[2019-10-25 09:48] VITALS: BP 97/62; PULSE 84; RESP 17; O2SAT 99
[2019-10-25 09:58] VITALS: BP 103/62; PULSE 74; RESP 14; O2SAT 96
[2019-10-25 10:08] VITALS: BP 108/74; PULSE 73; RESP 19; O2SAT 98
== END 2019-10-25 10:14 | disposition home or self-care (01) ==
PROVIDERS: PCP Family Medicine; Visit Provider Internal Medicine Gastroenterology
PROC: 0DJ08ZZ Inspection of Upper Intestinal Tract, Via Natural or Artificial Opening Endoscopic (ICD-10-PCS; CPT 43235; principal; 2019-10-25 09:00)
DX: K31.89 Other diseases of stomach and duodenum (principal); K21.9 Gastro-esophageal reflux disease without esophagitis; M05.9 Rheumatoid arthritis with rheumatoid factor, unspecified; F41.9 Anxiety disorder, unspecified; F33.9 Major depressive disorder, recurrent, unspecified; Z86.711 Personal history of pulmonary embolism; Z87.891 Personal history of nicotine dependence; Z79.891 Long term (current) use of opiate analgesic; Z79.899 Other long term (current) drug therapy
CPT/HCPCS: 43235; J2704; J7120

== ENCOUNTER 2019-11-05 07:27 | Outpatient (CLI) | payer OTHER, SELFPAY ==
--- NOTE | ~2019-11-05 | NM_ITS ---
EXAM: NM gastric emptying study DATE: 11/05/2019 12:42 INDICATION: Nausea. TECHNIQUE: A gastric emptying study was performed using the methodology of Som MORALES, et al. J Nucl Med 2007; 48:568-572. The patient was given a meal consisting of 2 scrambled eggs labeled with 1 mCi Tc-99m sulfur colloid, 2 slices of toast, two packages of jam, and approximately 120 mL of water. Si multaneous anterior and posterior 1-min images of the abdomen were obtained with the patient supine a t multiple time points over a total period of 4 hours. The geometric mean of anterior and posterior v iews was determined, and the percentage retention was calculated for each time point. COMPARISON: CT abdomen and pelvis 10/07/2019 FINDINGS: Gastric retention of the radiotracer-labeled meal was 60%, 40%, and 5% at the 1-hour, 2-ho ur, and 4-hour time points, respectively. With this technique, apparent rapid gastric emptying is sug gested by <30% gastric retention at 1 hour. Delayed gastric emptying is defined by gastric retention of >90% at 1 hour, >60% retention at 2 hours, or >10% retention at 4 hours. IMPRESSION: 1. Normal gastric emptying. Reviewed, dictated and finalized at location A. IMPRESSION: 1. Normal gastric emptying.
== END 2019-11-05 07:28 | disposition home or self-care (01) ==
PROVIDERS: PCP Family Medicine; Visit Provider Internal Medicine Gastroenterology
DX: R11.0 Nausea (principal)
CPT/HCPCS: 78264; A9541

== ENCOUNTER 2019-12-29 03:06 | Outpatient (CLI) | payer OTHER, SELFPAY ==
[2019-12-29 18:39] LABS: SARS-CoV-2 RNA PCR Negative
== END 2019-12-29 03:07 | disposition home or self-care (01) ==
LOC: ANHCOVIDDT 03:06
PROVIDERS: PCP Family Medicine; Visit Provider Podiatrist Foot & Ankle Surgery
DX: Z01.812 Encounter for preprocedural laboratory examination (principal); Z20.828 Contact with and (suspected) exposure to other viral communicable diseases
CPT/HCPCS: 87635; C9803; U0003

== ENCOUNTER 2019-12-31 01:37 | Day surgery (SDC) | payer OTHER, SELFPAY ==
[2019-12-20 12:12] VITALS: BMI 24.0
[2019-12-31 10:10] VITALS: BP 118/57; PULSE 73; RESP 16; TEMP 36; O2SAT 100; BMI 24.0
[2019-12-31] MEDS: LACTATED RINGERS 1,000 ML 30 ML IV CONT (10:45)
--- NOTE | 2019-12-31 10:56 | SUR.PREOP ---
1045; PT HAS DARK TOENAIL GREENLANDIC ON LT FOOT. REMOVED WITH GREENLANDIC REMOVER.
--- NOTE | 2019-12-31 11:25 | WPDANESEPPF ---
Anes - Initial Pre Proc Eval Procedure: Operation Date: 12/31/19 12:00 Proposed Procedures p Removal Screw Left Ankle - Lazaro Gamboa DPM Date/Time: 12/31/19 11:25 Surgeon: Lazaro Gamboa DPM Pre Op Diagnosis: Painful Hardware Left Ankle Patient Data Age: 54 Gender: F Height: 5 ft 4 in Weight: 63.5 kg Last Vital Signs Temp 36.0 C L 12/31/19 10:10 Pulse 73 12/31/19 10:10 Resp 16 12/31/19 10:10 BP 118/57 L 12/31/19 10:10 Pulse Ox 100 12/31/19 10:10 Allergies Allergy/AdvReac Type Severity Reaction Status Date / Time diclofenac Allergy Severe hives Verified 12/31/19 10:24 adhesive Allergy Unknown Itching/HIV Verified 12/31/19 10:24 ES Home Medications Medication Instructions Recorded Confirmed Type gabapentin 600 mg tablet 600 mg PO DAILY 02/18/19 12/31/19 History omeprazole 20 mg capsule,delayed 20 mg PO DAILY 02/18/19 12/31/19 History release etanercept 50 mg/mL (1 mL) 50 mg SUB-Q WEEKLY #4 ml 08/31/19 12/31/19 Rx subcutaneous cartridge morphine 30 mg immediate release 30 mg PO Q8H PRN 10/07/19 12/31/19 History tablet promethazine 25 mg PO Q4H PRN #10 tablet 10/07/19 12/31/19 Rx diphenhydramine HCl [Benadryl] 25 mg PO HS 10/19/19 12/31/19 History hydroxychloroquine 200 mg tablet 400 mg PO DAILY #60 tablet 11/17/19 12/31/19 Rx trazodone 50 mg PO HS 12/20/19 12/31/19 History Patient hx anesthesia problems: none Family hx anesthesia problems: none PMFSH Past Medical History Medical History Age-related osteoporosis without current pathological fracture Anemia Anxiety Bronchitis Chronic GERD Dermatitis Elbow fracture, right Foot fracture, right History of angina Irritable bowel syndrome with both constipation and diarrhea Left rib fracture x3 Major depression, chronic PE (pulmonary thromboembolism) Pneumonia Presence of neurostimulator Rheumatoid arthritis with positive rheumatoid factor (2019) Right wrist fracture UTI (urinary tract infection) Surgical History Surgical History H/O breast augmentation H/O laparoscopy History of appendectomy History of tonsillectomy Hx of cholecystectomy Hx of hysterectomy S/P ORIF (open reduction internal fixation) fracture lt ankle and rt wrist Family History Family History Mother Hypertension Cerebrovascular accident Family history of lymphoma Father Family history of Alzheimer's disease Other Carcinoma of colon Depression Diabetes mellitus Family history of arthritis Family history of cardiovascular disease Family history of emphysema Family history of glaucoma Family history of gout Family history of hepatitis Family history of thyroid disease Social History Social History Smoking packs per day: 1 Smoking cigarettes per day: 20.0 Years smoked: 30 Smoking pack-years: 30.00 Smoking status: Former smoker Tobacco type: cigarettes Second hand tobacco smoke exposure: No Smoking end date: 04/07/10 Additional smoking assessment comments: QUIT 7 YEARS AGO Alcohol intake: never Substance use: current Substance use type: marijuana Gender identity (if verbalized by the patient): Female Spiritual care concerns: No Anes - Eval Final PreProcedure Day of Procedure 12/31/19 11:25 Patient weight: normal Heart: regular rate and rhythm Lungs: clear to auscultation Airway: Mallampati scale class II Neurological: alert and oriented Last oral intake: >/= 8 hours ASA classification: III Emergent: no Anesthetic plan: proceed Anesthesia type and monitoring: general GIVS and standard monitoring Informed Consent: The patient's anesthetic plan and its attendant risks and benefits were discussed with the patient/family/POA. Questions were solicited and answe
--- NOTE | 2019-12-31 11:37 | WPDHPUPDATE1 ---
History and Physical Update Update Date/Time: 12/31/19 11:37 History and Physical has been reviewed, including an updated exam of the patient. There are NO changes in the patient's condition. Risks, benefits, and alternatives have been discussed and questions answered. Patient agrees to proceed with procedure.
--- NOTE | 2019-12-31 11:51 | PM.IMHP ---
H&P: HPI History of Present Illness Date/Time: 12/31/19 11:51 Chief complaint: Painful Hardware Left Ankle Narrative: Angelica Armando is a 54 year old female [facility] Past Medical History Medical History Age-related osteoporosis without current pathological fracture Anemia Anxiety Bronchitis Chronic GERD Dermatitis Elbow fracture, right Foot fracture, right History of angina Irritable bowel syndrome with both constipation and diarrhea Left rib fracture x3 Major depression, chronic PE (pulmonary thromboembolism) Pneumonia Presence of neurostimulator Rheumatoid arthritis with positive rheumatoid factor (2019) Right wrist fracture UTI (urinary tract infection) Surgical History Surgical History H/O breast augmentation H/O laparoscopy History of appendectomy History of tonsillectomy Hx of cholecystectomy Hx of hysterectomy S/P ORIF (open reduction internal fixation) fracture lt ankle and rt wrist Family History Family History Mother Hypertension Cerebrovascular accident Family history of lymphoma Father Family history of Alzheimer's disease Other Carcinoma of colon Depression Diabetes mellitus Family history of arthritis Family history of cardiovascular disease Family history of emphysema Family history of glaucoma Family history of gout Family history of hepatitis Family history of thyroid disease Social History Social History Smoking packs per day: 1 Smoking cigarettes per day: 20.0 Years smoked: 30 Smoking pack-years: 30.00 Smoking status: Former smoker Tobacco type: cigarettes Second hand tobacco smoke exposure: No Smoking end date: 04/07/10 Additional smoking assessment comments: QUIT 7 YEARS AGO Alcohol intake: never Substance use: current Substance use type: marijuana Gender identity (if verbalized by the patient): Female Spiritual care concerns: No Meds Home Medications and Allergies Home Medications Medication Instructions Recorded Confirmed Type gabapentin 600 mg tablet 600 mg PO DAILY 02/18/19 12/31/19 History omeprazole 20 mg capsule,delayed 20 mg PO DAILY 02/18/19 12/31/19 History release etanercept 50 mg/mL (1 mL) 50 mg SUB-Q WEEKLY #4 ml 08/31/19 12/31/19 Rx subcutaneous cartridge morphine 30 mg immediate release 30 mg PO Q8H PRN 10/07/19 12/31/19 History tablet promethazine 25 mg PO Q4H PRN #10 tablet 10/07/19 12/31/19 Rx diphenhydramine HCl [Benadryl] 25 mg PO HS 10/19/19 12/31/19 History hydroxychloroquine 200 mg tablet 400 mg PO DAILY #60 tablet 11/17/19 12/31/19 Rx trazodone 50 mg PO HS 12/20/19 12/31/19 History Allergies Allergy/AdvReac Type Severity Reaction Status Date / Time diclofenac Allergy Severe hives Verified 12/31/19 10:24 adhesive Allergy Unknown Itching/HIV Verified 12/31/19 10:24 ES Vital Signs Vital Signs - 24 hr 12/31/19 10:10 Temperature 36.0 C L Pulse Rate 73 Respiratory Rate 16 Blood Pressure 118/57 L Pulse Oximetry 100 Exam Const: General: no acute distress Skin: General skin exam: normal color Neuro: Cognition (Neuro): normal cognition Speech: normal speech Motor exam (neuro): 5/5 motor strength present throughout Sensory Exam: normal sensation Extrem: Left lower extremity: ankle Details: tenderness Location: of the lateral malleolus Assessment and Plan Additional Plan Excision of painful hardware left ankle
--- NOTE | 2019-12-31 11:54 | P.HP_ITS ---
H&P: HPI History of Present Illness Date/Time: 12/31/19 11:54 Chief complaint: Painful Hardware Left Ankle Narrative: Angelica Armando is a 54 year old female REPLACED BY [facility] Past Medical History Medical History Age-related osteoporosis without current pathological fracture Anemia Anxiety Bronchitis Chronic GERD Dermatitis Elbow fracture, right Foot fracture, right History of angina Irritable bowel syndrome with both constipation and diarrhea Left rib fracture x3 Major depression, chronic PE (pulmonary thromboembolism) Pneumonia Presence of neurostimulator Rheumatoid arthritis with positive rheumatoid factor (2019) Right wrist fracture UTI (urinary tract infection) Surgical History Surgical History H/O breast augmentation H/O laparoscopy History of appendectomy History of tonsillectomy Hx of cholecystectomy Hx of hysterectomy S/P ORIF (open reduction internal fixation) fracture lt ankle and rt wrist Family History Family History Mother Hypertension Cerebrovascular accident Family history of lymphoma Father Family history of Alzheimer's disease Other Carcinoma of colon Depression Diabetes mellitus Family history of arthritis Family history of cardiovascular disease Family history of emphysema Family history of glaucoma Family history of gout Family history of hepatitis Family history of thyroid disease Social History Social History Smoking packs per day: 1 Smoking cigarettes per day: 20.0 Years smoked: 30 Smoking pack-years: 30.00 Smoking status: Former smoker Tobacco type: cigarettes Second hand tobacco smoke exposure: No Smoking end date: 04/07/10 Additional smoking assessment comments: QUIT 7 YEARS AGO Alcohol intake: never Substance use: current Substance use type: marijuana Gender identity (if verbalized by the patient): Female Spiritual care concerns: No Meds Home Medications and Allergies Home Medications Medication Instructions Recorded Confirmed Type gabapentin 600 mg tablet 600 mg PO DAILY 02/18/19 12/31/19 History omeprazole 20 mg capsule,delayed 20 mg PO DAILY 02/18/19 12/31/19 History release etanercept 50 mg/mL (1 mL) 50 mg SUB-Q WEEKLY #4 ml 08/31/19 12/31/19 Rx subcutaneous cartridge morphine 30 mg immediate release 30 mg PO Q8H PRN 10/07/19 12/31/19 History tablet promethazine 25 mg PO Q4H PRN #10 tablet 10/07/19 12/31/19 Rx diphenhydramine HCl [Benadryl] 25 mg PO HS 10/19/19 12/31/19 History hydroxychloroquine 200 mg tablet 400 mg PO DAILY #60 tablet 11/17/19 12/31/19 Rx trazodone 50 mg PO HS 12/20/19 12/31/19 History Allergies Allergy/AdvReac Type Severity Reaction Status Date / Time diclofenac Allergy Severe hives Verified 12/31/19 10:24 adhesive Allergy Unknown Itching/HIV Verified 12/31/19 10:24 ES Vital Signs Vital Signs - 24 hr 12/31/19 10:10 Temperature 36.0 C L Pulse Rate 73 Respiratory Rate 16 Blood Pressure 118/57 L Pulse Oximetry 100
[2019-12-31] MEDS: ceFAZolin 2 GM/D5W 50 ML 2 GM/50 ML BAG IVPB (11:59)
[2019-12-31] MEDS: LIDOCAINE HCL 2% LOCAL INJ 20 ML VIAL 10 ML INFILTRATE (12:18)
[2019-12-31] MEDS: BACITRACIN OINTMENT 15 GM TUBE 1 APPLIC TOPICAL (12:24)
--- NOTE | 2019-12-31 12:27 | P.OP_ITS ---
Procedure Note - Detailed Date of procedure: 12/31/19 Pre-op diagnosis: Painful Hardware Left Ankle Post-op diagnosis: same Procedure performed: Removal of painful hardware left ankle Description of procedure: Under monitored sedation patient was brought into the operating room, placed on the operating table. Following MAC anesthesia local anesthesia was obtained using 2% Lidocaine plain and 0.5% Marcaine plain. The foot was then scrubbed, prepped, and draped in the usual aseptic manner. Attention was then directed to the lateral fibula left ankle where an incision was made medial to the prominent screw. It was deepened down to the le sonali of the bone using sharp and blunt dissection with great care taken to identify and retract all vital, neural and vascular structures. The screw was removed. Wound was then flushed with copious amounts of sterile normal saline. the skin was repaired using 4-0 nylon. The wounds were then covered with a dry, sterile compressive dressing consisting of Steristrips, antibiotic ointment, Adaptic, 4 x 4?s, Desmond and Coban. The ankle tourniquet was deflated and prompt capillary refill response noted to all digits of the right foot. Patient tolerated procedure and anesthesia well. He was transferred to the recovery room with vital signs stable and neurovascular status intact to all digits of the right foot. Following a period of post-operative monitoring the patient will be discharged home with written and oral post-operative instructions. Anesthesia: MAC Surgeon: Lazaro Gamboa DPM Special Services Coordinator: None Estimated blood loss (mL): 1 Drains: No Packing: No Pathology: none sent Complications: No immediate complications Condition: stable Disposition: PACU
[2019-12-31 12:30] VITALS: BP 90/51; PULSE 72; RESP 14; O2SAT 97
[2019-12-31 12:55] VITALS: BP 96/50; PULSE 66; RESP 14
== END 2019-12-31 13:20 | disposition home or self-care (01) ==
PROVIDERS: PCP Family Medicine; Visit Provider Podiatrist Foot & Ankle Surgery
PROC: (CPT 20680; principal; 2019-12-31 12:00)
DX: T84.84XA Pain due to internal orthopedic prosthetic devices, implants and grafts, initial encounter (principal); M25.572 Pain in left ankle and joints of left foot; Y83.8 Other surgical procedures as the cause of abnormal reaction of the patient, or of later complication, without mention of misadventure at the time of the procedure; M81.0 Age-related osteoporosis without current pathological fracture; K58.2 Mixed irritable bowel syndrome; D64.9 Anemia, unspecified; K21.9 Gastro-esophageal reflux disease without esophagitis; F32.9 Major depressive disorder, single episode, unspecified; M06.9 Rheumatoid arthritis, unspecified; Z86.711 Personal history of pulmonary embolism; Z87.891 Personal history of nicotine dependence; F12.90 Cannabis use, unspecified, uncomplicated
CPT/HCPCS: 20680; A9270; J0690; J2704; J3010; J7120

== ENCOUNTER 2020-04-17 08:29 | Outpatient (CLI) | payer OTHER, SELFPAY ==
--- NOTE | ~2020-04-17 | XR_ITS ---
EXAMINATION: XR hip BI 2V w AP pelvis EXAM DATE: 04/17/2020 08:51 INDICATION: M06.9 - Rheumatoid arthritis, unspecified. TECHNIQUE: Each hip imaged independently (separate right and also left hip) 'frog leg' and frontal p rojections for interpretation. Frontal projection pelvis. There is no prior study for comparison. FINDINGS: No radiographic evidence of hip avascular necrosis. There is mild symmetric bilateral hip primary osteoarthritis. There are no acute fractures or dislocations identified. There is no subcuta neous gas. The soft tissue is unremarkable. There are no radiopaque foreign bodies. IMPRESSION: Mild symmetric bilateral hip osteoarthritis. Reviewed, dictated and finalized at location B. DING GUARD DEPUTY SHERIFF
--- NOTE | ~2020-04-17 | XR_ITS ---
EXAMINATION: XR knee RT 3V DATE: 04/17/2020 08:51 INDICATION: Rheumatoid arthritis. TECHNIQUE: 3 views of right knee were obtained. COMPARISON: None. FINDINGS: Bone alignment is normal. No fracture. There is mild osteoarthritis of medial and patellofe moral compartments characterized by tiny marginal osteophytes. No knee joint effusion. IMPRESSION: 1. Mild right knee osteoarthritis. Reviewed, dictated and finalized at location A. GER [employer] D[employer]STER [employer]OVERY
--- NOTE | ~2020-04-17 | XR_ITS ---
EXAMINATION: XR knee LT 3V DATE: 04/17/2020 08:51 INDICATION: Rheumatoid arthritis. TECHNIQUE: 3 views of left knee were obtained. COMPARISON: None. FINDINGS: Bone alignment is normal. No fracture. There is mild osteoarthritis of medial and patellofe moral compartments characterized by tiny marginal osteophytes. No knee joint effusion. IMPRESSION: 1. Mild left knee osteoarthritis. Reviewed, dictated and finalized at location A. [facility] FUSING RO[facility]
== END 2020-04-17 08:30 | disposition home or self-care (01) ==
LOC: ANHIMG 08:36
PROVIDERS: PCP Family Medicine; Visit Provider Internal Medicine
DX: M16.0 Bilateral primary osteoarthritis of hip (principal)
CPT/HCPCS: 73521; 73562

== ENCOUNTER 2020-06-13 10:43 | Outpatient (CLI) | payer OTHER, SELFPAY | END 2020-06-13 10:44 | disposition home or self-care (01) | LOC: ANHCOVIDVC 10:43 | PROVIDERS: PCP Family Medicine | DX: Z23 Encounter for immunization (principal) | CPT/HCPCS: 0001A; 91300 ==

== ENCOUNTER 2020-07-04 10:37 | Outpatient (CLI) | payer OTHER, SELFPAY | END 2020-07-04 10:38 | disposition home or self-care (01) | LOC: ANHCOVIDVC 10:37 | PROVIDERS: PCP Family Medicine | DX: Z23 Encounter for immunization (principal) | CPT/HCPCS: 0002A; 91300 ==

== ENCOUNTER 2020-07-13 12:50 | Outpatient (CLI) | payer OTHER, SELFPAY ==
--- NOTE | ~2020-07-13 | US_ITS ---
EXAMINATION: US soft tissue head and neck DATE: 07/13/2020 13:19 INDICATION: Cervical lymphadenopathy. TECHNIQUE: Multiple grayscale and Doppler ultrasound images of the neck were obtained. COMPARISON: None FINDINGS: There are are normal submandibular lymph nodes in the patient's area of concern. IMPRESSION: 1. No abnormal mass or lymphadenopathy. Reviewed, dictated and finalized at location A.
== END 2020-07-13 12:51 | disposition home or self-care (01) ==
LOC: ANHIMG 12:52
PROVIDERS: PCP Family Medicine; Visit Provider Physician Assistant
DX: R59.1 Generalized enlarged lymph nodes (principal)
CPT/HCPCS: 76536

== ENCOUNTER 2021-04-03 08:21 | Outpatient (CLI) | payer OTHER, SELFPAY ==
--- NOTE | ~2021-04-03 | MM_ITS ---
EXAMINATION: MM scrn lucas implant BI w sara HISTORY: Screening mammogram TECHNIQUE: Craniocaudal and mediolateral oblique 3-D tomosynthesis images with implant displacement a nd synthetic 2-D images were generated. Craniocaudal and mediolateral oblique views of the breasts wi thout implant displacement were obtained using full field digital mammography. CAD analysis was submi tted and interpreted. COMPARISON: Comparison to multiple prior studies sequentially, with oldest reviewed study dated 12/24. BREAST PARENCHYMAL COMPOSITION: There are scattered areas of fibroglandular density. FINDINGS: There is no evidence of suspicious mass, calcification, or architectural distortion to sugg est malignancy in either breast. There has been no suspicious interval change. IMPRESSION: 1. No mammographic evidence of malignancy. 2. Recommend routine screening mammography in one year. BI-RADS Category 1: Negative Reviewed, dictated and finalized at location A. [employer] TEACHER
== END 2021-04-03 08:22 | disposition home or self-care (01) ==
LOC: ANHIMG 08:22
PROVIDERS: PCP Family Medicine; Visit Provider Nurse Practitioner Family
DX: Z12.31 Encounter for screening mammogram for malignant neoplasm of breast (principal)
CPT/HCPCS: 77063; 77067

== ENCOUNTER → 2021-11-30 09:04 | Outpatient (CLI) | payer OTHER, SELFPAY ==
--- NOTE | ~2021-11-30 | XR_ITS ---
EXAMINATION: XR hip BI 2V w AP pelvis DATE: 11/30/2021 09:21 INDICATION: Right hip pain. TECHNIQUE: An anteroposterior view of the pelvis and 2 views of each hip were obtained. COMPARISON: Pelvis and hip radiographs 04/17/2020 FINDINGS: Bone alignment is normal. No fracture. There is mild osteoarthritis of the hips. There is m ild lumbar spondylosis. IMPRESSION: 1. Mild osteoarthritis of the hips. Reviewed, dictated and finalized at location A.
== END ==
PROVIDERS: PCP Family Medicine; Visit Provider Physician Assistant
DX: M25.552 Pain in left hip (principal); M25.551 Pain in right hip; M16.0 Bilateral primary osteoarthritis of hip
CPT/HCPCS: 73521

== ENCOUNTER → 2022-09-18 10:07 | Outpatient (CLI) | payer OTHER, SELFPAY ==
--- NOTE | ~2022-09-18 | MR_ITS ---
EXAMINATION: 1. MR hip RT wo/w con 2. MR hip LT wo/w con DATE: 09/19/2022 12:12 INDICATION: Bilateral hip pain. Seropositive rheumatoid arthritis. TECHNIQUE: Magnetic resonance imaging (MRI) of the right hip was performed without and with 10 mL Mul tiHance intravenous contrast. MRI of the left hip was performed without and with intravenous contrast . COMPARISON: Pelvis and hip radiographs 11/30/2021 FINDINGS: RIGHT HIP MRI: Bone alignment is normal. No fracture. There is moderate lower lumbar spondylosis. The right hip joint demonstrates partial thickness cartilage loss and marginal osteophytes. There is a t ear of the right acetabular labrum. No right hip joint effusion. There is moderate right trochanteric bursitis. There is moderate right gluteus minimus tendinopathy and mild right gluteus medius tendino belkis. There is mild tendinopathy of the right hamstring origin. The right iliopsoas tendon is normal . LEFT HIP MRI: Bone alignment is normal. No fracture. The left hip joint demonstrates persistent thick ness cartilage loss and marginal osteophytes. There is a tear of the left acetabular labrum. No left hip joint effusion. There is moderate left trochanteric bursitis. There is moderate tendinopathy of l eft gluteus minimus and mild tendinopathy of left gluteus medius. There is mild tendinopathy of the l eft hamstring origin. The left iliopsoas tendon is normal. IMPRESSION: 1. Mild osteoarthritis and synovitis of the hips. 2. Tendinopathy of the bilateral gluteal tendons with moderate bilateral trochanteric bursitis. Reviewed, dictated and finalized at location A. IMPRESSION: 1. Mild osteoarthritis and synovitis of the hips. 2. Tendinopathy of the bilateral gluteal tendons with moderate bilateral trocha nteric bursitis.
== END ==
PROVIDERS: Visit Provider Internal Medicine
DX: M16.0 Bilateral primary osteoarthritis of hip (principal); M67.88 Other specified disorders of synovium and tendon, other site; M70.62 Trochanteric bursitis, left hip; M70.61 Trochanteric bursitis, right hip
CPT/HCPCS: 73723

== ENCOUNTER 2022-12-06 10:00 | Outpatient (RCR) | payer OTHER, SELFPAY ==
--- NOTE | 2022-11-13 09:29 | OPREHPOC ---
Outpatient Therapy Plan of Care This is a Multidisciplinary Plan of Care that may contain components documented by all disciplines (PT, OT, and ST.) PT Problem 1 PT Problem #1 Knowledge Deficit PT Goal 1 Goal Indpendent with HEP Target Visit 4 PT Problem 2 PT Problem #2 Impaired Flexibility PT Goal 1 Goal increase [place] HS from -30 to -20 in 90/90 test. Target Visit 4 PT Problem 3 PT Problem #3 Impaired Strength PT Goal 1 Goal increase [place] hip strength to 4+/5 without pain with testing. Target Visit 4
--- NOTE | 2022-11-13 09:29 | PTOPEVAL1 ---
Assessment and note entered by Connor Alejandra, PT Evaluation Information Assessment Status Evaluation Diagnosis [place] OA of hip and hip sprain Onset about a year Subjective Information The patient reports having severe chronic back pain since 2005 with a in her words botched procedure. Patient shows the physical therapist a record of her back and hip injections which is multiple pages long. The patient reports she has tried physical therapy before, but it only aggravates her pain in the back. Patient has had a recent MRI and she reports tears and bone spurs throughout her hips. Patient is wanting to go to get an orthopedic referral. Has increased jones with inactivity, but spends most of her days sitting on her couch. Reported Pain Level Pain Score 7: Self Report Assessment PT Clinical Summary Angelica is a 57 year old female coming into the clinic with a diagnosis of [place] hip OA and hip sprain. The patient was very guarded this session to take objective measurements and declined modalities to help with pain control worried about any test hurting her back more. Will try to work with patient on being more active and stretching out tight lower extremity, but will probably be slow going. Recommend the ortho referral sooner rather than later. Plan of Care Interventions Electrical Stimulation,Gait Training,Hot Pack/Cold Pack,Manual Therapy,Neuro Re-education,Patient/ Caregiver Education,Therapeutic Activities, Therapeutic Exercise,Ultrasound Other Interventions cupping, taping, IASTM PT Services Indicated Yes Treatment Frequency and 1x/wk for 4 visits Duration These treatments will address the objective and functional deficits as defined above. The patient will be advanced safely and appropriately in order for the patient to progress towards his/her prior level of function. Additional exercises will be introduced and as well as a comprehensive home exercise program upon discharge, if needed, ?to ensure carryover of functional gains achieved in the clinic. This treatment plan has been reviewed and agreement upon by the patient.
--- NOTE | 2022-12-06 10:33 | PTOPDC ---
Assessment and note entered by Lucia Jean-Baptiste, PT Evaluation Information Assessment Status Discharge Diagnosis [place] OA of hip and hip sprain Onset about a year Subjective Information saw pain management last week, they wanted to do another hip injection- she does not want due to last one did not help; nothing has changed since coming for therapy; was recently bed ridden for 12 years and do not want anything to mess up my back or hips and end up in bed again; do not feel like meds are working for her; also have back pain; can do all movements of legs but hurts; why do any exercises, they do not help; ACTIVITY: walking dog 30 minutes or little longer if she wants to walk more and do housework- laundry, cooking, cleaning; some days do not do anything because of pain and have to wait until a better day to do things Reported Pain Level Pain Score Self Report Additional Pain Score Comments pain range of 6-8/10 in R and L anterior and lateral hips; hurts and can feel the tears in the hips pain increase with doing too much; stairs; sometimes do nothing at all and they hurt pain decrease with heat, ice, sometimes pills help and sometimes not Assessment PT Clinical Summary Angelica has received 3 PT sessions. She attended the appointments, but did not want to participate in any stretching or strengthening activities or pain modalities. Continued to report do not want to make the pain any worse. Education was provided on correct posture with sitting--not to cross her legs and standing position. Discussed the diagnosis of RA and back pain--with the importance to stretch and strengthen the areas to assist with managing the pain. Angelica was not receptive to the education or participation in therapy. The goals were not met. Therefore, she will be discharged from PT services. Plan of Care PT Services Indicated No
== END 2022-12-11 08:21 | disposition home or self-care (01) ==
LOC: ANHPT 10:00
PROVIDERS: Visit Provider Internal Medicine
DX: M16.0 Bilateral primary osteoarthritis of hip (principal); S73.199A Other sprain of unspecified hip, initial encounter
CPT/HCPCS: 97110; 97140; 97161

== ENCOUNTER 2023-06-18 11:45 | Outpatient (CLI) | payer OTHER, SELFPAY ==
--- NOTE | ~2023-06-18 | XR_ITS ---
Clinical Indication: Cough PA and lateral views of the chest: Comparison: 05/17/2019 Findings: The lungs are clear, without evidence of focal consolidation or pleural effusion. Cardiome diastinal silhouette is within normal limits. Bones and soft tissues are unremarkable. Impression: Normal chest. Reviewed, dictated and finalized at [facility]. Impression: Normal chest.
== END 2023-06-18 11:46 | disposition home or self-care (01) ==
PROVIDERS: PCP Family Medicine; Visit Provider Physician Assistant Medical
DX: R09.89 Other specified symptoms and signs involving the circulatory and respiratory systems (principal)
CPT/HCPCS: 71046

== ENCOUNTER 2023-09-02 09:25 | Outpatient (CLI) | payer OTHER, SELFPAY ==
--- NOTE | ~2023-09-02 | CT_ITS ---
CT Scan of the Chest without Contrast: Clinical Indication: Lung cancer screening, nicotine dependence Technique: Contiguous sections were acquired throughout the chest without intravenous contrast. Dose reduction technique was used on this scan by utilizing automated exposure control and iterative recon struction technique. The dose-length product (DLP) was 47.18 mGy-cm. Findings: There is no evidence of any significant mediastinal, hilar or axillary lymphadenopathy. The mediastin al soft tissues appear normal. There is no evidence of pleural or pericardial effusion. 5 mm pleural-based nodule noted at the right upper lobe (axial image 34). There is a 5 mm pleural-bas ed nodule at the left upper lobe (axial image 26). There is an area of nodularity of the left lung ba se measuring up to 12 mm, closely associated with linear scarring, possibly focal scarring or atelect asis (axial image 102). Images through the upper abdomen reveal no abnormalities. Impression: Lung RADS 4A: Suspicious. 3 month follow-up CT recommended. Reviewed, dictated and finalized at location . Impression: Lung RADS 4A: Suspicious. 3 month follow-up CT recommended.
--- NOTE | ~2023-09-02 | CT_ITS ---
CT scan of the Neck Technique: 2.5 mm axial scans were obtained through the neck after intravenous administration of 75 c c Omnipaque 350. Coronal and sagittal reconstructions of the neck were obtained. Dose reduction techn ique was used on this scan by utilizing automated exposure control and iterative reconstruction techn ique. The dose-length product (DLP) was 381.89 mGy-cm. Clinical History: Enlarged right submandibular lymph node Findings: There is no evidence of any significant cervical lymphadenopathy. Several small, nonenlarged jugulo- digastric and posterior cervical lymph nodes are noted bilaterally. Parapharyngeal spaces appear norm al bilaterally. The parotid and submandibular glands appear normal. The pharyngeal mucosal spaces appear normal. No soft tissue masses are seen in the neck. The thyroid gland appears normal. Images of the lung apices reveal no abnormalities. There is grade 1 retrolisthesis of C5 over C6, with advanced degenerative disc narrowing at this level. Impression: No lymphadenopathy or other abnormal mass lesion identified. Reviewed, dictated and finalized at [facility]. Impression: No lymphadenopathy or other abnormal mass lesion identified.
[2023-09-02 09:46] LABS: Estimated Glomerular Filt Rate > 60
== END 2023-09-02 09:26 ==
LOC: MICIMG 09:26
PROVIDERS: PCP Family Medicine; Visit Provider Physician Assistant Medical
DX: Z12.2 Encounter for screening for malignant neoplasm of respiratory organs (principal); R59.0 Localized enlarged lymph nodes; Z87.891 Personal history of nicotine dependence
CPT/HCPCS: 70491; 71271; Q9967

== ENCOUNTER 2023-12-19 11:32 | Outpatient (CLI) | payer OTHER, SELFPAY ==
--- NOTE | ~2023-12-19 | CT_ITS ---
EXAMINATION: CT diagnostic chest wo con DATE: 12/19/2023 11:53 INDICATION: lung nodule on 09/02/23 LDCT TECHNIQUE: Computed tomography (CT) of the chest was performed without intravenous contrast. Addition al 3D reconstructions utilizing coronal maximum intensity projection (MIP) were performed. Automated exposure control and iterative reconstruction technique were employed. The dose-length product was 39 .05 mGy-cm. COMPARISON: 09/02/2023 FINDINGS: Are prior cavitary region within the linear band of discoid atelectasis/scarring in the basilar left lower lobe has collapsed. The patient now measures 4 mm in maximal thickness. Unchanged 4 mm nodule a t the posterior sulcus of the left lower lobe. Unchanged 5 mm pleural-based nodule in the posterior r ight upper lobe. Decrease in size of a previously 5 mm, currently 3 mm pleural-based nodule at the po sterior left upper lobe. No new or enlarging nodules identified. No pneumonia, pulmonary edema or ple ural effusion. Heart size is normal. Atherosclerotic coronary artery calcific lesion. No pericardial effusion. Thoracic aorta is normal in caliber. No pathologically enlarged thoracic lymphadenopathy. Peripheral capsular calcification is at bilateral breast implants. Visualized upper abdomen is unrema rkable. Severe disc height loss with associated degenerative endplate changes at L1-L2 and at the rig ht side of T4-T5. Otherwise mild to moderate thoracic spondylosis. IMPRESSION: 1. Previous noted centrally cavitary 12 mm nodular region along a band of discoid atelectasis/scarrin g in the left lower lobe has collapsed the band of scar no measuring 4 mm in maximal thickness. Recom mend return to annual low-dose chest CT follow-up. Reviewed, dictated and finalized at location B. IMPRESSION: 1. Previous noted centrally cavitary 12 mm nodular region along a band of disco id atelectasis/scarring in the left lower lobe has collapsed the band of scar n o measuring 4 mm in maximal thickness. Recommend return to annual low-dose ches t CT follow-up.
== END 2023-12-19 11:33 | disposition home or self-care (01) ==
LOC: MICIMG 11:32
PROVIDERS: PCP Family Medicine; Visit Provider Physician Assistant Medical
DX: R91.1 Solitary pulmonary nodule (principal)
CPT/HCPCS: 71250

== ENCOUNTER 2024-08-17 08:36 | Outpatient (CLI) | payer OTHER, SELFPAY ==
--- NOTE | ~2024-08-17 | MR_ITS ---
MRI of the lumbar spine Clinical History: Radiculopathy Technique: Axial T2-weighted images, and sagittal T1-weighted, T2-weighted, and T2 fat-sat images wer e acquired. Findings: There is 6 mm retrolisthesis of T12 over L1. There is 5 mm retrolisthesis of L1 over L2. Th ere is 6 mm anterolisthesis of L4 over L5. No acute fracture seen. There are extensive reactive marro w signal changes about the T12-L1 disc space due to underlying degenerative disc narrowing. At T12-L1, there is severe degenerative disc narrowing. There is minimal disc bulge and minimal facet arthropathy. No central canal stenosis. There is severe right neural foraminal narrowing. Left neura l foramen preserved. At L1-L2, there is advanced degenerative disc narrowing with mild disc bulge and mild to moderate fac et hypertrophy. No spinal canal stenosis. There is moderate right neural foraminal narrowing and mini mal left neural foraminal narrowing. At L3-L4, there is mild disc bulge with moderate facet arthropathy. No central canal stenosis or neur al foraminal narrowing. At L4-L5, there is minimal disc bulge with moderate to advanced facet arthropathy. No central canal s tenosis. There is moderate left neural foraminal narrowing. No right neural foraminal narrowing. At L4-L5, there is advanced degenerative disc narrowing. There is diffuse disc bulge/, with severe fa cet arthropathy, resulting in severe spinal canal stenosis/thecal sac compression. There is moderate to advanced bilateral neural foraminal narrowing. At L5-S1, there is no disc bulge or herniation. There is moderate facet arthropathy. No central canal stenosis. Neural foramina are preserved. Paravertebral soft tissues are unremarkable. Impression: Severe degenerative spondylosis at L4-L5, as detailed above. Advanced degenerative spondylitic change at T12-L1. Additional neural foraminal narrowing at L1-L2 and L4-L5, as detailed above. 6 mm retrolisthesis of T12 over L1. 5 mm retrolisthesis of L1 over L2. 6 mm anterolisthesis of L4 over L5. Reviewed, dictated and finalized at location M. Impression: Severe degenerative spondylosis at L4-L5, as detailed above. Advanced degenerative spondylitic change at T12-L1. Additional neural foraminal narrowing at L1-L2 and L4-L5, as detailed above. 6 mm retrolisthesis of T12 over L1. 5 mm retrolisthesis of L1 over L2. 6 mm anterolisthesis of L4 over L5.
== END 2024-08-17 08:37 | disposition home or self-care (01) ==
LOC: GOSHIMG 08:37
PROVIDERS: PCP Family Medicine
DX: M47.816 Spondylosis without myelopathy or radiculopathy, lumbar region (principal); M48.061 Spinal stenosis, lumbar region without neurogenic claudication; M43.15 Spondylolisthesis, thoracolumbar region; M47.815 Spondylosis without myelopathy or radiculopathy, thoracolumbar region
CPT/HCPCS: 72148

== ENCOUNTER 2024-08-20 07:37 | Outpatient (CLI) | payer OTHER, SELFPAY ==
--- NOTE | ~2024-08-20 | DEXA_ITS ---
Bone Density Report Name: MAMTA SINGER Age: 59 Sex: Female Ethnicity: White Date of : 1965 Indication: postmenopausal; screening for osteoporosis; height loss; inflammatory bowel disease; history of glucocorticoids; hysterectomy; rheumatoid arthritis; Referring Provider: Saira Garcia Study: Bone densitometry was performed. Exam Date: August 20, 2024 Accession number: [id number] Bone Density: Region BMD T-score Z-score Classification AP Spine(L1-L4) 0.964 -0.8 0.7 Normal World Health Organization criteria for BMD impression classify patients as: Normal (T-score at or above -1.0), Osteopenia (T-score between -1.0 and -2.5), or Osteoporosis (T-score at or below -2.5). Clinical Information Provided by Patient: Has taken Glucocorticoids Has rheumatoid arthritis Is being treated for osteoporosis Has used the following medications: Vitamin D, Calcium Has the following medical conditions: Inflammatory bowel diseases, Hysterectomy Patient maximum height was 67 Menopause Age: 27 No regular weight bearing exercise Does not regularly consume dairy products Drinks caffeinated beverages Onset of menses at age 14 Number of children 0 Impression: The patient has normal bone mass. The patient has risk factors, including: history of glucocorticoid therapy. Discussion: It is important to ask patients whether they are taking their medications and to encourage continued and appropriate compliance with their osteoporosis therapies to reduce fracture risk. It is also important to review their risk factors and encourage appropriate calcium and vitamin D intakes, exercise, fall prevention and other lifestyle measures. Follow-Up: Consider a repeat BMD and Vertebral Fracture Assessment (VFA) exam in 2 years or sooner if medically necessary, to reassess this patient's status. Reported by: LEVY on 08/25/2024 8:41:00 AM. Reviewed, dictated and finalized at location A.
== END 2024-08-20 07:38 | disposition home or self-care (01) ==
LOC: MICIMG 07:38
PROVIDERS: PCP Family Medicine; Visit Provider Internal Medicine
DX: M81.0 Age-related osteoporosis without current pathological fracture (principal); M16.0 Bilateral primary osteoarthritis of hip
CPT/HCPCS: 77080

== ENCOUNTER 2024-10-26 08:06 | Outpatient (CLI) | payer OTHER, SELFPAY ==
--- NOTE | ~2024-10-26 | MR_ITS ---
EXAMINATION: MR cervical spine wo con DATE: 10/26/2024 08:40 INDICATION: Cervical spinal stenosis TECHNIQUE: Magnetic resonance imaging (MRI) of the cervical spine was performed without intravenous c ontrast. Sequences included sagittal T2-weighted FSE, sagittal T2-weighted FS FSE, sagittal T1-weight ed FSE, axial MERGE and axial T2-weighted FSE. COMPARISON: None FINDINGS: Mild lower cervical dextrocurvature. 2 mm retrolisthesis C5 on C6 and 1-2 mm anterolisthesis C7 on T1 . Mild osteoarthritis at the atlantoaxial articulation. Vertebral body heights are normal. Severe dis c height loss with degenerative fibrovascular endplate changes at C5-C6. Moderate disc height loss at C6-C7. Cord signal intensity is normal. Visualized cervical soft tissues are unremarkable. The follo wing disc levels are specifically discussed: C2-C3: Disc is bulging with annular fissure. There is no uncovertebral joint osteoarthritis. There is no facet joint osteoarthritis. There is no neural foraminal stenosis. There is mild central canal st enosis. C3-C4: Disc is bulging with annular fissure. There is mild left and moderate right uncovertebral join t osteoarthritis. There is mild bilateral facet joint osteoarthritis. There is mild right neural fora ryan stenosis. There is mild central canal stenosis. C4-C5: The disc does not extend beyond the endplate margin. There is mild bilateral uncovertebral yanely nt osteoarthritis. There is mild bilateral facet joint osteoarthritis. There is mild right neural for aminal stenosis. There is no central canal stenosis. C5-C6: Posterior disc osteophyte complex. There is moderate right and severe left uncovertebral joint osteoarthritis. There is mild right and moderate left facet joint osteoarthritis. There is mild righ t and moderate left neural foraminal stenosis. There is mild central canal stenosis. C6-C7: Disc is bulging with annular fissure and small right paracentral disc protrusion. There is mil d right and severe left uncovertebral joint osteoarthritis. There is mild bilateral facet joint osteo arthritis. There is mild right and moderate left neural foraminal stenosis. There is mild central can al stenosis. C7-T1: Annular fissure. The disc does not extend beyond the more posterior T1 endplate margin. There is mild bilateral uncovertebral joint osteoarthritis. There is moderate right and moderate to severe left facet joint osteoarthritis. There is no neural foraminal stenosis. There is no central canal ashley nosis. IMPRESSION: 1. Severe lower cervical spondylosis. Reviewed, dictated and finalized at location A.
== END 2024-10-26 08:07 | disposition home or self-care (01) ==
PROVIDERS: PCP Family Medicine
DX: M47.812 Spondylosis without myelopathy or radiculopathy, cervical region (principal); M48.02 Spinal stenosis, cervical region
CPT/HCPCS: 72141